=== PATIENT | female | born 1990 | race African-American/Black ===

== ENCOUNTER 2019-07-14 17:47 | Emergency (ER) | payer BC, SELFPAY ==
[2019-07-14 18:00] VITALS: BP 128/74; PULSE 109; RESP 16; TEMP 37.2; O2SAT 99
--- NOTE | 2019-07-14 18:22 | ED.GENADULT ---
HPI - General Adult General Chief complaint: Upper Respiratory Infection Stated complaint: sore throat History of Present Illness HPI narrative: Patient is a 29-year-old morbidly obese -Citizen Of [place] female presents to the urgent care via POV for evaluation of swollen lymph nodes that began last night. She also reports white spots on right tonsil Prompting today's visit. Denies taking OTC meds for symptoms. Nothing improves or worsen symptoms. Pertinent negatives: fever, chills, poor p.o. intake, myalgias, flu-like symptoms, ear pain/drainage, sinus trouble, headache, nasal congestion, rhinorrhea, dizziness, LOC, inability to swallow, drooling, hoarseness, halitosis, abdominal pain, nausea, vomiting, diarrhea, cough, wheezing, sob, chest pain, heart murmurs, and heart palpations. Related Data Home Medications Medication Instructions Recorded Confirmed No Home Medications 07/14/19 07/14/19 Allergies Allergy/AdvReac Type Severity Reaction Status Date / Time No Known Allergies Allergy Verified 07/14/19 18:06 Review of Systems Review of Systems: Narrative: All other systems reviewed and are negative PMFSH Social History Social History Gender identity (if verbalized by the patient): Female Comments I have reviewed and agree with the patient's past medical, surgical, social, and family hx as documented by the RN. There is no relevant family history pertinent to the presenting complaint. Exam Narrative: Exam Narrative: GENERAL: Well-appearing, well-nourished, and in no acute distress. HEAD: Normocephalic, atraumatic. No sinus tenderness or facial swelling appreciated. EYES: PERRLA and EOMI. No evidence of erythema, swelling, or drainage. ENT: Bilateral external ears and ear canals normal. Bilateral TMs are normal.No TM perforation. Nares clear, no rhinorrhea or epistaxis. Bilateral turbinates without erythema/ swelling. Mucous membranes moist and pink. Uvula is midline without erythema and swelling. Bilateral tonsils with mild erythema and small amount of exudate noted to left tonsil. No evidence of petechial rash, cobblestoning, lesions, ulcers, swelling, peritonsillar abscess, tenting, or drooling. Breath odor and voice normal. NECK: Supple. No Lymphadenopathy or nuchal rigidity appreciated. CHEST: Bilateral lung gordon are clear to auscultation. No respiratory distress. No evidence of cough or pleuritic cp upon examination. HEART: Regular rate and rhythm. No murmur, gallop, or rub heard. EXTREMITIES: Normal range of motion. No edema. SKIN: Warm, dry, no rash. NEURO: No focal deficits. Alert and oriented x3. Course Vital Signs Vital signs: Vital Signs Temperature 98.9 F 07/14/19 18:00 Pulse Rate 109 H 07/14/19 18:00 Respiratory Rate 16 07/14/19 18:00 Blood Pressure 128/74 07/14/19 18:00 Pulse Oximetry 99 07/14/19 18:00 Temperature 98.9 F 07/14/19 18:00 Pulse Rate 109 H 07/14/19 18:00 Respiratory Rate 16 07/14/19 18:00 Blood Pressure 128/74 07/14/19 18:00 Pulse Oximetry 99 07/14/19 18:00 Medical Decision Making Differential Diagnosis Differential Diagnosis: Allergic rhinitis, ABRS, acute viral sinusitis, strep pharyngitis, nasopharyngitis, bronchitis, pneumonia, AOM, otitis externa, viral URI, influenza Medical Records Medical records reviewed: Yes I reviewed the patient's medical records. Vital Signs Vital Signs: Vital Signs Temperature 98.9 F 07/14/19 18:00 Pulse Rate 109 H 07/14/19 18:00 Respiratory Rate 16 07/14/19 18:00 Blood Pressure 128/74 07/14/19 18:00 Pulse Oximetry 99 07/14/19 18:00 Temperature 98.9 F 07/14/19 18:00 Pulse Rate 109 H 07/14/19 18:00 Respiratory Rate 16 07/14/19 18:00 Blood Pressure 128/74 07/14/19 18:00 Pulse Oximetry 99 07/14/19 18:00 Lab Data Lab results reviewed: Yes I reviewed the patient's lab results. Labs: Strep Screen Presumptive Negative *(Reference Rang
== END 2019-07-14 18:35 | disposition home or self-care (01) ==
PROVIDERS: Emergency Provider Nurse Practitioner Family
DX: J02.9 Acute pharyngitis, unspecified (principal)
CPT/HCPCS: 87081; 87880; 99203; G0463